=== PATIENT | female | born 1990 | race African-American/Black ===

== ENCOUNTER 2020-11-13 20:04 | Emergency (ER) | payer SELFPAY ==
[~2020-11-13] VITALS: Ht 165.1 cm; Wt 100.0 kg
[2020-11-13] MEDS ORDERED: LORAZEPAM 2MG/ML CPJ IM ONE (20:30)
[2020-11-13 23:50] VITALS: BP 121/86
== END 2020-11-13 23:55 | disposition home or self-care (01) ==
LOC: ER 20:04
DX: R45.1 Restlessness and agitation (principal); R00.2 Palpitations
CPT/HCPCS: 93005; 99283